=== PATIENT | male | born 1965 | race American Indian/Alaskan Native ===

== ENCOUNTER 2020-08-28 20:40 | Emergency (ER) | payer SELFPAY ==
[2020-08-28 21:56] VITALS: BP 157/94
== END 2020-08-28 22:00 | disposition left against medical advice (07) ==
LOC: ED 20:40
DX: S61.451A Open bite of right hand, initial encounter (principal); Z53.21 Procedure and treatment not carried out due to patient leaving prior to being seen by health care provider; X58.XXXA Exposure to other specified factors, initial encounter; Y93.89 Activity, other specified; Y92.89 Other specified places as the place of occurrence of the external cause; Y99.8 Other external cause status